=== PATIENT | female | born 1975 | race Caucasian/White ===

== ENCOUNTER 2019-07-23 13:47 | Inpatient (IN) | payer SELFPAY ==
[~2019-07-23 13:47] MED LIST: Iopamidol 370 76% 100 ML VIAL ONE
[2019-07-23 14:09] LABS: #Eosinphils 0.1 thou/uL (0.0-0.7); #Lymphocytes 1.3 thou/uL (1.20-3.40); #Neutrophils 13.9 thou/uL (1.40-6.50); %Basophils 0.2 % (0.0-1.0); %Eosinophils 0.5 % (0.0-10.0); %Monocytes 6.4 % (0.0-10.0); Hemoglobin 12.8 g/dL (12.0-16.0); Mean Corpuscular HGB CONC 32.3 g/dL (32.0-36.0); Mean Corpuscular Hemoglobin 31.8 pg (27.0-31.0); Mean Corpuscular Volume 98.5 fL (78.0-98.0); Mean Platelet Volume 8.6 fL (7.4-10.4); Platelet Count 438 thou/uL (130-400); RBC Distribution Width 12.8 % (11.5-14.5); Red Blood Cell (RBC) Count 4.02 mill/uL (4.20-5.40); White Blood Cell (WBC) Count 16.4 thou/uL (4.8-10.8)
[2019-07-23 14:27] LABS: ALT (SGPT) 110 U/L (8-55); AST (SGOT) 83 U/L (5-34); Alkaline Phosphatase 745 U/L (40-110); Anion Gap 14 mmol/L (10-20); BUN (Urea Nitrogen) 4 mg/dL (7.0-18.7); Bilirubin, Total 4.8 mg/dL (0.2-1.2); Calc. Creatinine Clearance 0 mL/min (70-130); Calcium 9.2 mg/dL (7.8-10.44); Carbon Dioxide 22 mmol/L (22-29); Chloride 103 mmol/L (98-107); Estimated GFR-MDRD Greater than 90; Globulin 3.8 g/dL (2.4-3.5); Glucose 115 mg/dL (70-105); Lipase 13 U/L (8-78); Potassium 3.7 mmol/L (3.5-5.1); Protein, Total 7.8 g/dL (6.0-8.3); Sodium 135 mmol/L (136-145)
[2019-07-23 16:46] LABS: Bilirubin 2+ (Negative); Blood, Urine Negative (Negative); Clarity Clear (Clear); Glucose, Urine (Dipstick) Normal (Negative); Leukocyte Negative Leu/uL (Negative); Nitrite Negative (Negative); Protein, Urine (Dipstick) Negative (Neg-Trace)
[2019-07-23 16:50] LABS: Pregnancy Test - Urine (BHCG) Negative (Negative); Pregu Control Background? CLEAR/WHITE (CLR/WHITE); Pregu Control Bar Appear? YES (CONTROL BAR); Specific Gravity 1.018 (1.002-1.036)
--- NOTE | 2019-07-23 16:53 | ULT ---
RIGHT UPPER QUADRANT ULTRASOUND: 07/23/19 INDICATIONS: Epigastric abdominal pain. COMPARISON: Right upper quadrant ultrasound dated 05/30/16, ERCP dated 09/10/[address] abdomen and pelvis dated 09/10. FINDINGS: Again seen is prominent intrahepatic and extrahepatic biliary ductal dilatation with the common bile duct measuring up to 1.7 cm. There is a large suspected calculus again noted within the common bile d uct measuring 3.5 x 1.5 x 2 cm. gallbladder is surgically absent. The visualized right kidney is norm al appearing measuring 13.1 cm. Visualized aspects of the pancreas appear within normal limits. IMPRESSION: 1. Findings most consistent with recurrent choledocholithiasis with an enlarged proximal common bile duct stone measuring 3.5 x 1.4 x 2 cm inducing prominent intrahepatic and extrahepatic biliary d uctal dilatation. 2. Cholecystectomy. POS: BH
[2019-07-23] MEDS ORDERED: traMADol HCl 50 MG TAB ONE (17:42)
--- NOTE | 2019-07-23 18:01 | CT ---
CT OF THE ABDOMEN AND PELVIS WITH IV CONTRAST: 07/23/19 INDICATION: History of epigastric abdominal pain. FINDINGS: The lung bases are clear. There is prominent intrahepatic and extrahepatic biliary ductal dilatation. There are numerous promin ent stones within the common bile duct. The largest is seen proximally measuring 1.9 cm. There is an additional 1.5 cm, 1.7 cm, 1 cm and 1.1 cm stone within the distal common bile duct. There is a stent present extending into the third portion of the duodenum and into the distal common bile duct. There is a 1.8 cm peripancreatic lymph node. Additional mildly prominent lymph nodes are seen within the periportal region. These are relatively stable in size to the comparison CT dated 09/10/13. Spleen and kidneys reveal no definite abnormality. Adrenal glands appear within normal limits. Gallbl adder is surgically absent. The bladder, rectum and perirectal soft tissues are unremarkable appearin g. There are scattered phleboliths. There is a normal appendix in the right lower quadrant. Small bow el is normal appearing. No definite acute osseous abnormality is demonstrated. IMPRESSION: 1. Choledocholithiasis with prominent intrahepatic and extrahepatic biliary ductal dilatation. T he degree of stone disease has worsened from the comparison in 2013. 2. Stable biliary stent. 3. Other findings as above. POS: BH
[2019-07-23] MEDS ORDERED: Ondansetron PF 4 MG/2 ML Vial IVP PRN (18:56)
[2019-07-23] MEDS ORDERED: Ondansetron ODT 4 MG TAB PO PRN (18:56)
[2019-07-23] MEDS ORDERED: traMADol HCl 50 MG TAB PO PRN (19:01)
[2019-07-23] MEDS ORDERED: Sodium Chloride 0.9% 1,000 ML IV SCH (19:05)
[2019-07-23] MEDS ORDERED: Pantoprazole 40 MG VIAL IVP SCH ×2 (19:15→21:30)
--- NOTE | 2019-07-23 19:18 | PDOC.HHP ---
Hospitalist HPI - History of Present Illness Abdominal pain x 2 days History of Present Illness: PCP: None (uninsured) The patient is a 44/F with PMH significant for multiple biliary stents, biliary sphincterotomy, cholecysectomy and alcohol abuse that presents for the above complaint. The patient reports developing right upper quadrant abdominal pain for the past two days, constant, increasing intensity, maximum pain score 5/10. Reports associated nausea and vomiting. Denies hemoptysis. Reports chills over past two nights. Reports charbel colored stools, denies any diarrhea or blood in stools. The patient has had biliary stents x3, last replaced in 2007 and 2013. ED Course: VS 99.2F, 176/115, 97, 18, 98%RA CT abdomen pelvis + choledocolithiasis with ductal dilation Bilirubin 4.8 ALP 745 AST 83 ALT 110 Lipase 13 WBC 16.4 Given: Tramadol 50mg po x 1 dose with relief of symptoms Allergies: Penicillin - reports mild, itching, "when I was a kid" Home Medications: None Hospitalist ROS - Review of Systems Constitutional: reports: chills, malaise. denies: fever Eyes: denies: pain, vision change, conjunctivae inflammation, eyelid inflammation, redness, other ENT: denies: ear pain, ear discharge, nose pain, nose discharge, nose congestion , mouth pain, mouth swelling, throat pain, throat swelling, other Respiratory: denies: cough, dry, shortness of breath, hemoptysis, SOB with excertion, pleuritic pain, sputum, wheezing, other Cardiovascular: denies: chest pain, palpitations, orthopnea, paroxysmal noc. dyspnea, edema, light headedness, other Gastrointestinal: reports: nausea, vomiting, abdominal pain. denies: diarrhea, constipation, melena, hematochezia Genitourinary: denies: dysuria, frequency, incontinence, hematuria, retention, other Musculoskeletal: denies: neck pain, shoulder pain, arm pain, back pain, hand pain, leg pain, foot pain, other Neurological: denies: numbness, incoordination, change in speech Hospitalist History - Past Medical History Source: patient Cardiac: reports: HTN (does not take medications) Hepatobiliary: reports: Cholelithiasis (with biliary stents) Psych: reports: Anxiety, Depression (Does not take any medications) - Past Surgical History Past Surgical History: reports: Cholecystectomy, , Other (Biliary stents, replaced 2007 and 2013) - Family History Family History: reports: no pertinent history Other Family History: non contributory for this case - Social History Smoking Status: Never smoker Alcohol: reports: Heavy (6 pack beer per day) Drugs: reports: none Living Situation: With Family 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, she is a hairstylist Activity level: independent ambulation - Exam General Appearance: NAD, awake alert Eye: anicteric sclera ENT: normocephalic atraumatic Neck: supple, no lymphadenopathy Heart: RRR, no murmur, no gallops, no rubs, normal peripheral pulses Respiratory: CTAB, no wheezes, no rales, no ronchi, normal chest expansion, no tachypnea Gastrointestinal: soft, non-tender, non-distended, normal bowel sounds, no guarding, no rigidity Extremities: no cyanosis, no edema Skin: no rashes Neurological: no focal deficits Psychiatric: normal affect, A&O x 3 Hospitalist Results - Labs Result Diagrams: 07/23/19 13:59 07/23/19 13:59 Lab results: WBC 16.4 thou/uL (4.8-10.8) H 07/23/19 13:59 Hgb 12.8 g/dL (12.0-16.0) 07/23/19 13:59 Hct 39.5 % (36.0-47.0) 07/23/19 13:59 MCV 98.5 fL (78.0-98.0) H 07/23/19 13:59 Plt Count 438 thou/uL (130-400) H 07/23/19 13:59 Neutrophils % 85.0 % (42.0-75.0) H 07/23/19 13:59 Sodium 135 mmol/L (136-145) L 07/23/19 13:59 Potassium 3.7 mmol/L (3.5-5.1) 07/23/19 13:59 Chloride 103 mmol/L (98-107) 07/23/19 13:59 Carbon Dioxide 22 mmol/L (22-29) 07/23/19 13:59 BUN 4 mg/dL (7.0-18.7) L 07/23/19 13:59 Creatinine 0.67 mg/dL (0.6-1.1) 07/23/19 13:59 Glucose 115 mg/dL (70-105) H 07/23/19 13:59 Calcium 9.2 mg/dL (7.8-10.44) 07/23/19 13:59 Total Bilirubin 4.8 mg/dL (0.2-1.2) H 07/23/19 13:59 AST 83 U/L (5-34) H 07/23/19 13:59 ALT 110 U/L (8-55) H 07/23/19 13:59 Alkaline Phosphatase 745 U/L (40-110) H 07/23/19 13:59 Serum Total Protein 7.8 g/dL (6.0-8.3) 07/23/19 13:59 Albumin 4.0 g/dL (3.5-5.0) 07/23/19 13:59 Lipase 13 U/L (8-78) 07/23/19 13:59 Urine Ketones Negative mg/dL (Negative) 07/23/19 16:35 Urine Blood Negative (Negative) 07/23/19 16:35 Urine Nitrite Negative (Negative) 07/23/19 16:35 Ur Leukocyte Esterase Negative Chana/uL (Negative) 07/23/19 16:35 - Radiology Interpretation US - abdomen Status: report reviewed by pr CT scan - abdomen Status: report reviewed by pr Hospitalist H&P A/P - Problem (1) Choledocholithiasis Code(s): K80.50 - CALCULUS OF BILE DUCT W/O CHOLANGITIS OR CHOLECYST W/O OBST Status: Acute Assessment and Plan: Admit to medical floor, inpatient status Expected length of stay greater than 2 midnights Patient presented tachycardic with elevated WBCs CT abdomen + for choledocolithiasis Elevated LFTs Dr. Marroquin saw patient at bedside, scheduled ERCP in morning Start Rocephin and Metronidazole IVPB NS 1L bolus, then IVF at 150mls/hr NPO Tramadol scheduled and zofran prn Repeat labs in am. (2) Cholangitis Code(s): K83.0 - CHOLANGITIS * DO NOT USE * Status: Acute Assessment and Plan: Secondary to #1 (3) Sepsis Code(s): A41.9 - SEPSIS, UNSPECIFIED ORGANISM Status: Acute Assessment and Plan: Will obtain LA Will start rocephin and metronidazole IVPB Will start IV fluids I&Os Will recheck labs in am (4) Elevated LFTs Code(s): R79.89 - OTHER SPECIFIED ABNORMAL FINDINGS OF BLOOD CHEMISTRY Status : Acute Assessment and Plan: Secondary to #1 (5) Alcohol abuse Code(s): F10.10 - ALCOHOL ABUSE, UNCOMPLICATED Status: Chronic Assessment and Plan: Patient last drink > 48 hours Will initiate ASE protocol Counseled on alcohol cessation (6) HTN (hypertension) Code(s): I10 - ESSENTIAL (PRIMARY) HYPERTENSION Status: Chronic Assessment and Plan: Patient dose not take any medications Will monitor VS q 4 hours Will add prn medications if necessary - Plan Plan: Consult Physical therapy GI and DVT prophylaxis Full Code Medical decision maker is Omer rodriguez at [phone] Bey.
[2019-07-23] MEDS ORDERED: Diazepam 5 MG TAB PO PRN (19:43)
[2019-07-23] MEDS ORDERED: Thiamine HCl 200 MG/2 ML VIAL IM SCH (19:45)
[2019-07-23] MEDS ORDERED: cefTRIAXone\\ROCEPHIN 1 GM in Sodium Chloride 0.9% 100 ML IVPB SCH ×2 (20:00→23:00)
[2019-07-23 20:19] LABS: Lactic Acid 0.6 mmol/L (0.5-2.2)
[2019-07-23] MEDS ORDERED: Enoxaparin Sodium 40 MG/0.4 ML SYRINGE SC SCH ×2 (21:00)
[2019-07-23] MEDS: Sodium Chloride 0.9% 1,000 ML IV SCH (21:20)
[2019-07-23 21:42] VITALS: BMI 26.7
[2019-07-23] MEDS: metroNIDAZOLE 500 MG in Premix Bag 1 BAG IVPB SCH (21:56)
[2019-07-23] MEDS ORDERED: metroNIDAZOLE 500 MG in Premix Bag 1 BAG IVPB SCH (22:00)
--- NOTE | 2019-07-24 01:20 | CON ---
DATE OF CONSULTATION: 07/23/2019 CHIEF COMPLAINT: Abdominal pain. HISTORY OF PRESENT ILLNESS: Ms. Mejia is a 44-year-old woman, who has a biliary stent in place that was placed in 2013. She has not had an exchange since then. She has some chronic vomiting and throws up around 4 to 5 times a week for months or years. Over the last few days, she has had right upper quadrant epigastric abdominal pain that radiates through toward the right back. This is an aching severe pain and she came on to the emergency room to get this checked out. Two days ago, her stools turned to a cream color. She has had no blood in the stool. No hematemesis. She has felt hot, but has not taken her temperature to know she definitely has fever or not. Her white count was noted to be elevated on presentation. She delivered her baby by in 2005. The next day she underwent cholecystectomy and had a T-tube placed and had drain in place for the next couple of months. After that, she had ERCP performed and stones were removed and a stent was placed. A couple of years after that in 2007, she had the stent removed and exchanged. She then did not follow up again until 2013 she showed up here and Dr. Jin removed her stent that was previously placed in [place] and replaced the stent with an 11.5-Bangladeshi x 9 cm stent. She was noted to have a long stricture in the distal bile duct. She had stones above that. She did not follow up again until now. She did actually come to the hospital in 2016 and was noted to have elevated liver tests, but her bilirubin was normal then. She was found to have the stent in place and stones, but she left the hospital against medical advice before she was seen by Gastroenterology. PAST MEDICAL HISTORY: Biliary stricture with choledocholithiasis. PAST SURGICAL HISTORY: ERCP with stent, cholecystectomy with T-tube placement, . FAMILY HISTORY: Negative for GI malignancy. SOCIAL HISTORY: She drinks a 6 pack per day or wine daily. Denies smoking or drugs. ALLERGIES: PENICILLIN. MEDICATIONS: Prior to admission, none. REVIEW OF SYSTEMS: Negative x10 systems reviewed except as stated in history of present illness. PHYSICAL EXAMINATION: VITAL SIGNS: Temperature 98.7, blood pressure 164/103, pulse 90. GENERAL: She is in no acute distress. Alert and oriented x3. HEENT: Eyes have slight scleral icterus. Oropharynx is clear without lesions. NECK: No cervical or supraclavicular lymphadenopathy. LUNGS: Clear to auscultation bilaterally. HEART: Regular rate and rhythm without murmur. ABDOMEN: Soft. Mild tenderness in the right upper quadrant without guarding. Her bowel sounds are present. EXTREMITIES: No lower extremity edema. NEUROLOGIC: Cranial nerves are grossly intact. LABORATORY DATA: White blood cell count 16.4, hemoglobin 12.8, platelets 438. Creatinine 0.67, bilirubin 4.8, AST 83, ALT 110, alkaline phosphatase 745, albumin 4.0, lipase 13. IMPRESSION: 1. Choledocholithiasis with large stones proximal to biliary stricture. 2. Chronic distal common bile duct stricture, likely secondary to prior T-tube drain and choledocholithiasis. She has required recurrent plastic biliary stent placement to drain the duct, however, she has not been compliant for followup regarding this. The importance of exchanging the stents has been stressed. Risks for life-threatening cholangitis with leaving the stents in for prolonged period again was expressed to her. 3. Possible mild cholangitis now given the elevated white blood cell count. RECOMMENDATIONS: 1. Antibiotics. 2. Blood cultures. 3. ERCP tomorrow to exchange the stent. 4. She will likely require choledochojejunostomy or long-term drainage and treatment. It is unlikely that she would be able to undergo multiple ERCPs to dilate her bile duct and remove the large stones in place. Job ID: [id number]
[2019-07-24] MEDS ORDERED: Melatonin 3 MG TAB PO SCH (02:15)
[2019-07-24] MEDS: Sodium Chloride 0.9% 1,000 ML IV SCH ×3 (02:21→16:18)
[2019-07-24] MEDS ORDERED: Diazepam 5 MG TAB PO PRN (04:00)
[2019-07-24] MEDS: metroNIDAZOLE 500 MG in Premix Bag 1 BAG IVPB SCH ×2 (05:37→13:53)
[2019-07-24] MEDS ORDERED: Multivitamin W/ Minerals 1 TAB PO SCH (09:00)
[2019-07-24] MEDS ORDERED: Folic Acid 1 MG TAB PO SCH (09:00)
[2019-07-24] MEDS ORDERED: Magnesium Oxide 400 MG TAB PO SCH (09:00)
[2019-07-24] MEDS ORDERED: Thiamine 100 MG TAB PO SCH (09:00)
[2019-07-24] MEDS ORDERED: Indomethacin 50 MG SUPP ONE (09:47)
[2019-07-24] MEDS ORDERED: Iothalamate Meglumine 60% 30 ML VIAL FS ONE ×2 (09:48→10:50)
[2019-07-24] MEDS ORDERED: Midazolam HCl 2 mg/2 ml Vial ONE (09:55)
[2019-07-24] MEDS ORDERED: Fentanyl 100 MCG/2 ML VIAL ONE (09:55)
[2019-07-24 10:19] LABS: #Basophils 0.1 thou/uL (0.0-0.2); #Eosinphils 0.1 thou/uL (0.0-0.7); #Monocytes 0.5 thou/uL (0.11-0.59); #Neutrophils 3.8 thou/uL (1.40-6.50); %Eosinophils 1.9 % (0.0-10.0); %Monocytes 7.9 % (0.0-10.0); %Neutrophils 58.2 % (42.0-75.0); Hemoglobin 11.7 g/dL (12.0-16.0); Mean Corpuscular HGB CONC 32.9 g/dL (32.0-36.0); Mean Corpuscular Hemoglobin 32.2 pg (27.0-31.0); Mean Corpuscular Volume 97.6 fL (78.0-98.0); Mean Platelet Volume 8.7 fL (7.4-10.4); Platelet Count 376 thou/uL (130-400); RBC Distribution Width 12.7 % (11.5-14.5); Red Blood Cell (RBC) Count 3.63 mill/uL (4.20-5.40); White Blood Cell (WBC) Count 6.5 thou/uL (4.8-10.8)
[2019-07-24 10:27] LABS: INR-International Normal Ratio 0.9; Prothrombin Time 12.3 SEC (12.0-14.7)
[2019-07-24 10:30] LABS: ALT (SGPT) 82 U/L (8-55); AST (SGOT) 56 U/L (5-34); Albumin 3.4 g/dL (3.5-5.0); Alkaline Phosphatase 590 U/L (40-110); Anion Gap 13 mmol/L (10-20); BUN (Urea Nitrogen) 4 mg/dL (7.0-18.7); Bilirubin, Total 4.2 mg/dL (0.2-1.2); Calc. Creatinine Clearance 173 mL/min (70-130); Calcium 8.6 mg/dL (7.8-10.44); Carbon Dioxide 19 mmol/L (22-29); Chloride 110 mmol/L (98-107); Estimated GFR-MDRD Greater than 90; Globulin 3.4 g/dL (2.4-3.5); Glucose 98 mg/dL (70-105); Potassium 3.5 mmol/L (3.5-5.1); Protein, Total 6.8 g/dL (6.0-8.3); Sodium 138 mmol/L (136-145)
[2019-07-24] MEDS ORDERED: Rocuronium Bromide 10 MG/ML (10ML VIAL) ONE (10:53)
[2019-07-24] MEDS ORDERED: Ondansetron PF 4 MG/2 ML Vial ONE (10:53)
[2019-07-24] MEDS ORDERED: Lidocaine 1% PF 5 ML VIAL ONE (10:53)
[2019-07-24] MEDS ORDERED: Dexamethasone 20 MG/5 ML VIAL ONE (10:53)
[2019-07-24] MEDS ORDERED: PROPOFOL 200 MG/20 ML VIAL ONE (10:53)
[2019-07-24] MEDS ORDERED: Glycopyrrolate 0.2 MG/ML 5 ML SYRINGE ONE (10:53)
[2019-07-24] MEDS ORDERED: Promethazine HCl 25 MG/ML VIAL IM PRN (11:52)
[2019-07-24] MEDS ORDERED: PACU-Morphine 4MG/ML VIAL SLOW IVP PRN (11:52)
[2019-07-24] MEDS ORDERED: HYDROmorphone 2 MG/ML VIAL SLOW IVP PRN (11:52)
[2019-07-24] MEDS ORDERED: Promethazine HCl 25 MG/ML VIAL SLOW IVP PRN (11:52)
[2019-07-24] MEDS ORDERED: Ondansetron HCl/PF 4 MG/2 ML Vial IVP PRN (11:52)
--- NOTE | 2019-07-24 11:58 | RAD ---
ERCP: History: Stone removal. FINDINGS: This is a series of 13 films which show injection into a dilated biliary system with filling defects demonstrated. The final images show a biliary stent in place. IMPRESSION: Placement of biliary stent. POS: LURDES
--- NOTE | 2019-07-24 14:44 | OP ---
DATE OF PROCEDURE: 07/24/2019 PROCEDURE PERFORMED: Endoscopic retrograde cholangiopancreatography with exchange of plastic biliary stent and balloon stone extraction. PREOPERATIVE DIAGNOSES: Choledocholithiasis and biliary foreign body with plastic stent that was placed in 2013. DESCRIPTION OF PROCEDURE: Informed consent was obtained from the patient. She was sedated with general anesthesia. She was placed in the prone position, and the duodenoscope was advanced easily to the second portion of the duodenum. The ampulla was identified and appeared somewhat inflamed with slight ulceration and the old stent protruding from it. The prior 11.5-[place]an 9 cm stent was grasped with a snare and pulled out through the patient's mouth. It was removed intact. The bile duct was cannulated and cholangiogram was performed, which showed marked dilation of the bile duct up to 2.5 cm. The common bile duct and extrahepatic ducts were markedly dilated with multiple large filling defects. A 15 mm balloon was used to sweep the distal common bile duct. The balloon passed through the distal common bile duct and through the sphincterotomy without significant resistance. I removed multiple large stones and sludge with the balloon. Finally, there were 3 stones at least still remaining in the more proximal bile duct. An 18 mm balloon was used to sweep the bile duct, but these stones were too large and hard. I used a basket to attempt to grasp the large stone to crush it; however, the stone could not be grasped within the wires of the basket. Ultimately, I placed a 5 cm 11.5-[place] stent with good drainage of bile and contrast. IMPRESSION: 1. Dilated common bile duct and hepatic ducts up to 2.5 cm. Multiple large filling defects. 2. The old plastic stent from 2013 was removed intact. 3. Multiple large stones were extracted with a 15 mm balloon. An 18 mm balloon was also used to sweep the duct, but it was deflated somewhat to pass through the old sphincterotomy site. There was not a significant stricture at this point as the 15 mm balloon passed easily fully inflated through the old sphincterotomy. 4. Additional large stones more proximally could not be grasped with a basket and could not be removed today. 5. A 5 cm 11.5-[place] stent was placed with good drainage of bile and contrast. The fluid was suctioned from her duodenum and stomach, and the procedure was completed. RECOMMENDATIONS: 1. Repeat ERCP with stone extraction within the next couple of months. 2. Start Ursodiol. 3. Anticipate discharge home today if there is no immediate complication. 4. Follow up with Dr. Jin in the office. The remaining stones are quite large and might require referral for choledochoscopy and laser. However, given her lack of insurance status, referral might be difficult and instead attempt at ERCP and basket the stone crushing and extraction might be worth repeating. In the meantime perhaps, we can soften the stones with Ursodiol. Job ID: [id number]
[2019-07-24 16:03] VITALS: BP 158/99; TEMP 98.2
[2019-07-24] MEDS ORDERED: Ursodiol 300 MG CAP PO SCH (17:00)
--- NOTE | 2019-07-26 01:48 | DIS ---
DATE OF ADMISSION: 07/23/2019 DATE OF DISCHARGE: 07/24/2019 DISCHARGE DIAGNOSES: 1. Choledocholithiasis 2. Transaminitis 3. Leukocytosis 4. Anemia, 5. Hyponatremia. CONSULTATIONS: GI with Dr. Tim Marroquin. PROCEDURES: ERCP on 07/23 with exchange of plastic biliary stent and balloon stone extraction. BRIEF HISTORY OF PRESENT ILLNESS: This is a 44-year-old female with a past medical history of multiple biliary stents, biliary sphincterotomy and cholecystectomy, alcohol abuse, who presented to the emergency room with right upper quadrant abdominal pain for the past 2 days with associated nausea, vomiting, and chills. The patient did have a low-grade temperature of 99.[address] in the emergency room. CT scan of the abdomen and pelvis showed choledocholithiasis with ductal dilation. Her LFTs were elevated as well with an alkaline phosphatase of 745 and a bilirubin of 4.8. The patient was admitted for further workup. HOSPITAL COURSE: C Choledocholithiasis: The patient underwent GI consultation. US abdomen showed recurrent choledocholithiasis with an enlarged proximal common bile duct stone measuring 2.5 x 1.4 x 2 cm with prominent intrahepatic and extrahepatic biliary ductal dilation. The patient was started on ceftriaxone and Flagyl empirically. She underwent an ERCP on the with placement of a biliary stent and balloon stone extraction. The patient's old plastic stent from 2013 was removed. There were multiple large stones extracted with a 15 mm balloon. There were not any significant strictures. She did have additional large stones, which were unable to be removed. She had placement of a 5 cm 11.5-Tajik stent. The patient tolerated the procedure well and was able tolerate a regular diet. She was started on Ursodiol supplements 300 mg twice daily to help soften the stones. She was also given ciprofloxacin for additional 4 days to complete a 5-day course of antibiotics. She should follow up with Dr. Jin in her office for a possible repeat ERCP with basket stone crushing and extraction. DISCHARGE PHYSICAL EXAMINATION: VITAL SIGNS: Temperature 98.2, heart rate 83, respiratory rate 18, O2 saturation 97% on room air, blood pressure 155/89. GENERAL: The patient is alert, awake, oriented x3. CVS: Regular rate and rhythm with no murmurs, rubs, or gallops. LUNGS: Clear to auscultation bilaterally. ABDOMEN: Positive bowel sounds, soft, mild epigastric tenderness. No rebound, guarding, or rigidity. EXTREMITIES: No edema. PERTINENT LABORATORY DATA: CBC on 07/22: White blood cell count 16.4, hemoglobin 12.8, hematocrit 39.5, MCV 98.5. CBC on 07/23: White blood cell count 6.5, hemoglobin 11.7, hematocrit 35.5, platelet count 36. CMP on 07/23: AST 56, ALT 82, alkaline phosphatase 590, which is downtrending. UA on 07/22: Normal. Urine test on 07/22: Normal. CT abdomen on 07/22: Choledocholithiasis with prominent intrahepatic and extrahepatic biliary ductal dilation. Stable biliary stent. There are 1.5 cm, 1.7 cm, 1 cm, 1.1 cm stones within the distal common bile duct. There is 1.8 cm pancreatic lymph node. There are scattered phleboliths. Ultrasound on 07/22: Recurrent choledocholithiasis within a large proximal CBD stone measuring 2.5 x 1.4 x 2 cm inducing prominent intrahepatic and extrahepatic biliary ductal dilation. DISCHARGE CONDITION: Stable. ACTIVITY: As tolerated. DIET: Regular diet. DISCHARGE INSTRUCTIONS: The patient to follow up with her PCP in a week and Dr. Jin in 2 weeks with repeat liver function tests. She should take ciprofloxacin for 4 more days. She should also have a repeat CBC with her PCP to see if she is still anemic. She is to take Ursodiol supplements twice daily to soften the stones and consideration of repeat ERCP to remove additional stones should be done. DISCHARGE MEDICATIONS: New prescriptions: 1. Ursodiol 300 mg p.o. b.i.d. 2. Ciprofloxacin 500 mg p.o. q.12 hours. Job ID: [id number] [facility]
--- NOTE | 2019-07-26 05:51 | PQF ---
Vidya Mejia Uma MD [id number] CLINICAL DOCUMENTATION CLARIFICATION FORM: POST DISCHARGE Addendum to original discharge summary date: ____ Late entry note date: __ DATE:07/26/2019 ATTN: Radha Wilder Please exercise your independent, professional judgment in responding to the clarification form. Clinical indicators are provided on the bottom of this form for your review Please check appropriate box(s) to clarify if the following diagnosis has been ruled in or ruled out: Sepsis [ ] Ruled in diagnosis [ ] Continue to treat [ ] Resolved [ X ] Ruled out diagnosis [ ] Cannot rule out diagnosis [ ] Other diagnosis [ ] Unable to determine For continuity of documentation, please document condition throughout progress notes and discharge summary. Thank You. CLINICAL INDICATORS - SIGNS / SYMPTOMS / LABS Laboratory 07/22 WBC 16.4. Plt count 438, Neutrophils 85.0, Lactic Acid 0.6 Vital signs 07/22 BP 164/103, Pulse 97, Resp 18, temp 98.7 CT abdomen 07/22 Impression Choledocholithiasis and ductal dilation H&P p1 07/22 Dr Schafer Pt reports developing RUQ pain for the past two days, constant, increasing intensity, maximum pain score 5/10 H&P p1 07/22 Dr Schafer reports associated nausea and vomiting H&P p4 07/22 Dr Schafer Choledocholithiasis with Cholangitis H&P p4 07/22 Dr Schafer Acute sepsis RISK FACTORS H&P p1 07/22 Alcohol abuse H&P p1 07/22 s/p Cholecystectomy and multiple biliary stent H&P p2 07/22 HTN H&P p2 07/22 hx of cholelithiasis TREATMENTS MAR 07/22 IV Metronidazole 500mg MAR 07/22 IV Ceftriaxone Sodium 1gm MAR 07/22 IVF NS 1L Operative report ERCP with Stent placement and Stone removal GE consult 07/22 Tim Agiular Collected 07/22 Abdomen/Pelvis CT (This form is maintained as a part of the permanent medical record) 2014 [employer]. All Rights Reserved [email or web address]
--- NOTE | 2019-07-26 05:52 | PQF ---
Vidya Mejia, [facility] [id number] CLINICAL DOCUMENTATION CLARIFICATION FORM: POST DISCHARGE Addendum to original discharge summary date: ____ Late entry note date: __ DATE:07/26/2019 ATTN: Dr Galvin Radha Please exercise your independent, professional judgment in responding to the clarification form. Clinical indicators are provided on the bottom of this form for your review Please check appropriate box(s): [ ] Infected Cholangitis as a complication of Biliary stent [ ] Infected Cholangitis not a complication of Biliary stent [ X ] Other diagnosis ____ Choledocholithiasis [ ] Unable to determine In addition, please specify: Present on Admission (POA): [ ] Yes [ ] No [ ] Unable to determine CLINICAL INDICATORS - SIGNS / SYMPTOMS / LABS Laboratory 07/22 WBC 16.4. Plt count 438, Neutrophils 85.0, Lactic Acid 0.6 Vital signs 07/22 BP 164/103, Pulse 97, Resp 18, temp 98.7 CT abdomend 07/22 Impression Choledocholithiasis and ductal dilation H&P p1 07/22 Dr Schafer Pt reports developing RUQ pain for the past two days, constant, increasing intensity, maximum pain score 5/10 H&P p1 07/22 Dr Schafer reports associated nausea and vomiting H&P p4 07/22 Dr Schafer Choledocholithiasis with Cholangitis Consult p2 07/22 Possible mild cholangitis now, given the elevated white blood cell count DS p1 07/23 The patient did have a low grade temp of 99.2 RISK FACTORS H&P p1 07/22 Alcohol abuse H&P p1 07/22 s/p Cholecystectomy and multiple biliary stent H&P p2 07/22 HTN H&P p2 07/22 hx of cholelithiasis TREATMENTS MAR 07/22 IV Metronidazole 500mg JUN 01 IV Ceftriaxone Sodium 1gm MAR 07/22 IVF NS 1L Operative report ERCP with Stent placement and Stone removal GE consult 07/22 Tim Aguilar Collected 07/22 Abdomen/Pelvis CT (This form is maintained as a part of the permanent medical record) 2014 [employer]. All Rights Reserved [email or web address]
== END 2019-07-24 16:20 | disposition home or self-care (01) | DRG 445 ==
LOC: ERS 13:47 → T4-B 18:23 → ERS 19:35
PROVIDERS: ADMIT Internal Medicine; ATTEND Internal Medicine
PROC: 0FC98ZZ Extirpation of Matter from Common Bile Duct, Via Natural or Artificial Opening Endoscopic (ICD-10-PCS; principal; 2019-07-24)
PROC: 0FPB8DZ Removal of Intraluminal Device from Hepatobiliary Duct, Via Natural or Artificial Opening Endoscopic (ICD-10-PCS; 2019-07-24)
PROC: 0F798DZ Dilation of Common Bile Duct with Intraluminal Device, Via Natural or Artificial Opening Endoscopic (ICD-10-PCS; 2019-07-24)
DX: K80.50 Calculus of bile duct without cholangitis or cholecystitis without obstruction (principal); E87.1 Hypo-osmolality and hyponatremia; F10.10 Alcohol abuse, uncomplicated; I10 Essential (primary) hypertension; Z90.49 Acquired absence of other specified parts of digestive tract; Z88.0 Allergy status to penicillin; D64.9 Anemia, unspecified
CPT/HCPCS: 36415; 74177; 74330; 76705; 80053; 81003; 81025; 83605; 83690; 85025; 85610; C9113; J0696; J1100; J1610; J1650; J2001; J2250; J2405; J2704; J3010; J3411; J3475; J3490; Q9967

== ENCOUNTER 2019-09-10 07:15 | Outpatient (CLI) | payer OTHER, SELFPAY ==
[2019-09-11 12:17] LABS: SARS-CoV-2 MS2 Positive; SARS-CoV-2 N Gene Negative; SARS-CoV-2 S Gene Negative; SARS-CoV-2 orf1ab Negative
== END 2019-09-10 07:16 | disposition home or self-care (01) ==
LOC: LABBT 07:15
PROVIDERS: ATTEND Internal Medicine Gastroenterology
DX: Z01.812 Encounter for preprocedural laboratory examination (principal); Z11.59 Encounter for screening for other viral diseases; K80.50 Calculus of bile duct without cholangitis or cholecystitis without obstruction
CPT/HCPCS: 87635; U0003

== ENCOUNTER 2019-09-14 06:02 | Day surgery (SDC) | payer SELFPAY ==
[2019-09-09 08:52] VITALS: BMI 25.0
[2019-09-14] MEDS ORDERED: Levofloxacin 500 mg/D5W 100 ml Premix Bag ONE (06:30)
[2019-09-14] MEDS ORDERED: Fentanyl 100 MCG/2 ML VIAL ONE (06:36)
[2019-09-14] MEDS ORDERED: Iopamidol 50 ML FS ONE (07:07)
[2019-09-14] MEDS ORDERED: Midazolam HCl 2 mg/2 ml Vial ONE (07:21)
[2019-09-14] MEDS ORDERED: Famotidine/PF 20 mg/2ml Vial ONE (07:21)
[2019-09-14] MEDS ORDERED: hydrALAZINE 20 MG/ML VIAL ONE ×2 (07:24→10:16)
[2019-09-14] MEDS ORDERED: Indomethacin 50 MG SUPP ONE (07:52)
--- NOTE | 2019-09-14 09:24 | RAD ---
EXAM: ERCP HISTORY: Gallstones COMPARISON: 07/24/[address] abdomen 07/23/2019 FINDINGS: Limited intraoperative fluoroscopic views were taken during a an ERCP. The common bile duct is enlarged. There are multiple filling defects on the initial images within the common bile duct. These are not seen on the latter images. No leakage from the common bile duct. There is moderate intrahepatic biliary dilatation. IMPRESSION: Enlargement of the biliary tree with initial filling defects absent on latter images.
[2019-09-14] MEDS ORDERED: Labetalol HCl 100 MG/20 ML VIAL ONE (09:34)
[2019-09-14] MEDS ORDERED: Promethazine HCl 25 MG/ML VIAL ONE (09:46)
[2019-09-14] MEDS ORDERED: Morphine 4 MG/ML VIAL ONE (09:54)
[2019-09-14] MEDS ORDERED: Glycopyrrolate 0.2 MG/ML 5 ML SYRINGE ONE (10:46)
[2019-09-14] MEDS ORDERED: Metoprolol Tartrate 5 MG/5 ML VIAL ONE (10:46)
[2019-09-14] MEDS ORDERED: Lidocaine 1% PF 5 ML VIAL ONE (10:46)
[2019-09-14] MEDS ORDERED: Dexamethasone 20 MG/5 ML VIAL ONE (10:46)
[2019-09-14] MEDS ORDERED: Ondansetron PF 4 MG/2 ML Vial ONE (10:46)
[2019-09-14] MEDS ORDERED: Rocuronium Bromide 10 MG/ML (10ML VIAL) ONE (10:46)
[2019-09-14] MEDS ORDERED: PROPOFOL 200 MG/20 ML VIAL ONE (10:46)
--- NOTE | 2019-09-14 15:29 | OP ---
DATE OF PROCEDURE: 09/14/2019 PROCEDURE PERFORMED: Endoscopic retrograde cholangiopancreatography with mechanical stone lithotripsy and balloon stone extraction and plastic biliary stent placement. PREOPERATIVE DIAGNOSIS: Choledocholithiasis. She had undergone ERCP a couple of months ago with removal of an old indwelling biliary stent. Cholangiogram at that time showed large stones, which could not be extracted. Recommendation was to go to [place] for choledochoscopy and lithotripsy with laser; however, due to lack of insurance, she was unable to make that appointment. She presents today to replace the stent and potentially remove the stones. DESCRIPTION OF PROCEDURE: Informed consent was obtained from the patient. She was sedated with general anesthesia. She was placed in the prone position, and the duodenoscope was advanced easily to the second portion of the duodenum. The existing 11.5-Citizen [place] 5 cm stent was grasped with a snare and pulled out through her mouth. This was intact. The scope was re-inserted and cholangiogram was performed with an 18 mm balloon. The distal duct was swept with removal of some small stones. At least 3 large stones measuring up to over 15 mm were identified on cholangiogram. The duct was dilated over 2 cm well up into the extrahepatic ducts and the intrahepatic ducts were also dilated. A 3 cm basket was inserted and the stones were grasped with a basket and crushed. Some large fragments were removed with the basket. The duct was then swept clear with an 18 mm balloon. The [address] way from the hepatic ducts down through the sphincterotomy without resistance and there were no further fragments or stones remaining. However, the duct was wider than the balloon and there was enough contrast up in the upper proximal ducts that there could be a stone that could not be visualized up in that area still remaining. I placed an 11.5-[place]izen [place] 5 cm stent to allow the duct to drain and the plan will be to go back in a couple of months and remove the stent and verify that the duct was clear. She will remain on Zahra in the meantime. IMPRESSION: 1. Common bile duct and extrahepatic ducts dilated to over 2 cm with large filling defects in the common bile duct and extrahepatic ducts. 2. Mechanical lithotripsy performed with a 3 cm basket and the duct was swept clear with an 18 mm balloon. The 18 mm balloon does pass through the existing sphincterotomy without significant resistance. 3. An 11.5-[place] 5 cm plastic stent was placed. RECOMMENDATIONS: 1. Continue Zahra. 2. Repeat ERCP in 2 months to verify the duct is clear and remove the stent or exchange it depending on the situation. Job ID: [id number]
== END 2019-09-14 11:17 | disposition home or self-care (01) ==
LOC: SDC 06:02 → EEVIPCON 06:02 → SDC 11:17
PROVIDERS: ATTEND Internal Medicine Gastroenterology
PROC: 0F798DZ Dilation of Common Bile Duct with Intraluminal Device, Via Natural or Artificial Opening Endoscopic (ICD-10-PCS; principal; 2019-09-14)
PROC: 0FC98ZZ Extirpation of Matter from Common Bile Duct, Via Natural or Artificial Opening Endoscopic (ICD-10-PCS; principal; 2019-09-14)
DX: K80.50 Calculus of bile duct without cholangitis or cholecystitis without obstruction (principal); K21.9 Gastro-esophageal reflux disease without esophagitis; Z88.0 Allergy status to penicillin
CPT/HCPCS: 74330; J0360; J1100; J1956; J2001; J2250; J2270; J2405; J2550; J2704; J3010; Q9967; S0028

== ENCOUNTER 2020-01-12 07:47 | Outpatient (CLI) | payer OTHER, SELFPAY ==
[2020-01-13 19:04] LABS: SARS-CoV-2 MS2 Positive; SARS-CoV-2 N Gene Negative; SARS-CoV-2 S Gene Negative; SARS-CoV-2 by NAA Not Detected (NotDetected); SARS-CoV-2 orf1ab Negative
== END 2020-01-12 07:48 | disposition home or self-care (01) ==
LOC: LABBT 07:47
PROVIDERS: ATTEND Internal Medicine Gastroenterology
DX: K80.70 Calculus of gallbladder and bile duct without cholecystitis without obstruction (principal); Z20.828 Contact with and (suspected) exposure to other viral communicable diseases
CPT/HCPCS: 87635; U0003

== ENCOUNTER 2020-01-17 06:00 | Day surgery (SDC) | payer OTHER, SELFPAY ==
[2020-01-17] MEDS ORDERED: SUGAMMADEX SODIUM 200 MG/2 ML VIAL ONE (06:54)
[2020-01-17] MEDS ORDERED: Fentanyl 100 MCG/2 ML VIAL ONE (06:54)
[2020-01-17] MEDS ORDERED: Midazolam HCl 2 mg/2 ml Vial ONE (07:48)
[2020-01-17] MEDS ORDERED: Levofloxacin 500 mg/D5W 100 ml Premix Bag ONE (07:48)
[2020-01-17] MEDS ORDERED: Indomethacin 50 MG SUPP ONE ×2 (07:53→07:54)
[2020-01-17] MEDS ORDERED: Iothalamate Meglumine 60% 50 ML VIAL FS ONE (08:43)
--- NOTE | 2020-01-17 10:27 | RAD ---
EXAM: ERCP HISTORY: Common bile duct stone removal COMPARISON: 09/14/2019 FINDINGS: Limited intraoperative fluoroscopic views were taken during a an ERCP. Common bile duct is enlarged and there are multiple apparent filling defects in the common bile duct. No leakage from the common bile duct. The last image shows a biliary stent. IMPRESSION: Enlargement of the common bile duct with likely multiple common bile duct stones.
--- NOTE | 2020-01-17 11:03 | OP ---
DATE OF PROCEDURE: 01/17/2020 PROCEDURES PERFORMED: Endoscopic retrograde cholangiopancreatography with stone extraction with balloon and mechanical lithotripsy and placement of plastic biliary stent. PREOPERATIVE DIAGNOSES: Choledocholithiasis and biliary foreign body. DESCRIPTION OF PROCEDURE: Informed consent was obtained from the patient. She was sedated with general anesthesia and placed in the prone position. The duodenoscope was advanced easily to the second portion of the duodenum. The previous plastic stent was removed with a snare intact. Cholangiogram was performed which revealed large filling defects in the common bile duct and common hepatic ducts. The ducts were dilated to 15 mm in the common bile duct and well over 2 cm in the common hepatic duct area. The balloon had to be deflated from 18 mm to 15 mm to pass through the sphincterotomy easily. The most distal large stone was grasped with the basket and broken apart by mechanical lithotripsy and then large stone fragments were removed with the basket wires and with the balloon. There was a very large stone stuck in the common hepatic duct, which could not be grasped with the 3 cm wire basket. It was difficult to get the wires passed the stone as it was nearly occluding the lumen, but when we did get the wires on passed the stone, the stone could not be grasped within the wires. Finally, an 11.5-[place] 5 cm plastic stent was replaced with good drainage of clear yellow bile and contrast. The fluid was suctioned from the stomach. The procedure was completed. IMPRESSION: 1. Cholangiogram showing large filling defects with markedly dilated common hepatic ducts up over 2 cm. An 18 mm balloon was deflated to 15 mm to pass through the sphincterotomy. The prior plastic stent was removed intact. 2. One large stone was crushed with mechanical lithotripsy and the fragments were removed with the basket wires and balloon. 3. There was a large stone more proximally within the common hepatic duct, which could not be captured with the basket wires to perform lithotripsy. 4. An 11.5-[place] 5 cm plastic stent was placed with drainage of clear yellow bile. RECOMMENDATIONS: 1. Again attempt referral for [facility] and laser lithotripsy. 2. Replace the plastic stent in 2 to 3 months if referral for [facility] and laser lithotripsy cannot be completed. Job ID: [id number]
[2020-01-17] MEDS ORDERED: Promethazine HCl 25 MG/ML VIAL ONE (11:09)
[2020-01-17] MEDS ORDERED: Dexamethasone 20 MG/5 ML VIAL ONE (13:14)
[2020-01-17] MEDS ORDERED: PROPOFOL 200 MG/20 ML VIAL ONE (13:14)
[2020-01-17] MEDS ORDERED: Rocuronium Bromide 10 MG/ML (10ML VIAL) ONE (13:14)
[2020-01-17] MEDS ORDERED: Ondansetron PF 4 MG/2 ML Vial ONE (13:14)
[2020-01-17] MEDS ORDERED: Labetalol HCl 100 MG/20 ML VIAL ONE (13:14)
== END 2020-01-17 12:22 | disposition home or self-care (01) ==
LOC: SDC 06:00
PROVIDERS: ATTEND Internal Medicine Gastroenterology
PROC: 0FPB8DZ Removal of Intraluminal Device from Hepatobiliary Duct, Via Natural or Artificial Opening Endoscopic (ICD-10-PCS; principal; 2020-01-17)
PROC: 0FC98ZZ Extirpation of Matter from Common Bile Duct, Via Natural or Artificial Opening Endoscopic (ICD-10-PCS; principal; 2020-01-17)
DX: K80.50 Calculus of bile duct without cholangitis or cholecystitis without obstruction (principal); I10 Essential (primary) hypertension; Z79.899 Other long term (current) drug therapy; Z88.0 Allergy status to penicillin; Z96.89 Presence of other specified functional implants
CPT/HCPCS: 74330; J1100; J1956; J2250; J2405; J2550; J2704; J3010